=== PATIENT | male | born 1990 | race African-American/Black ===

== ENCOUNTER 2017-06-19 13:20 | Emergency (ER) | payer SELFPAY ==
[~2017-06-19] VITALS: Ht 180.3 cm; Wt 76.6 kg
[2017-06-19] MEDS ORDERED: MAALOX/HYOSCYAMINE/LIDOCAINE 45 ML BTL PO ONE (14:00)
[2017-06-19] MEDS ORDERED: FAMOTIDINE 20 MG/2 ML IVP ONE (14:00)
[2017-06-19] MEDS ORDERED: ONDANSETRON 2MG/ML, 2ML IVPush ONE (14:00)
[2017-06-19] MEDS ORDERED: SODIUM CHLORIDE FLUSH 10ML SYR IVF ONE (14:00)
[2017-06-19] MEDS ORDERED: SODIUM CHLORIDE 0.9% 1,000ML IVBOLUS ONE (14:00)
[2017-06-19] MEDS ORDERED: MAALOX/HYOSCYAMINE/LIDOCAINE 45 ML BTL ONE (14:09)
[2017-06-19] MEDS ORDERED: FAMOTIDINE 20 MG/2 ML ONE (14:10)
[2017-06-19] MEDS ORDERED: ONDANSETRON 2MG/ML, 2ML ONE (14:10)
[2017-06-19 14:22] LABS: HEMOGLOBIN 16.1 g/dL (13.7-18.0); WHITE BLOOD COUNT 5.3 x10^3/uL (3.4-10)
[2017-06-19 14:35] LABS: BLOOD UREA NITROGEN 12 mg/dL (7-18)
[2017-06-19 14:39] LABS: ASPARTATE AMINO TRANSFERASE 31 U/L (15-37)
[2017-06-19 16:13] VITALS: BP 142/84
== END 2017-06-19 16:15 | disposition home or self-care (01) ==
LOC: ED 16:00
DX: K29.00 Acute gastritis without bleeding (principal); R01.1 Cardiac murmur, unspecified
CPT/HCPCS: 36415; 76700; 80053; 83690; 85025; 96361; 96374; 96375; 99285; J2405; J7030; S0028